=== PATIENT | female | born 1995 | race Hispanic/Latino ===

== ENCOUNTER 2020-01-04 12:50 | Emergency (ER) | payer MEDICAID, OTHER ==
[2020-01-04] MEDS ORDERED: ORPHENADRINE CITRATE 30 MG/ML ML ONE (13:20)
[2020-01-04] MEDS ORDERED: KETOROLAC TROMETHAMINE 30MG/ML ONE (13:21)
[2020-01-04 13:22] LABS: APPEARANCE,URINE Clear (CLEAR); BILIRUBIN,URINE Negative (NEGATIVE); COLOR,URINE Yellow (YELLOW); GLUCOSE, URINE (UA) Negative (NEGATIVE); KETONES,URINE Negative (NEGATIVE); LEUKOCYTE ESTERASE ,URINE Small (NEGATIVE); NITRATE,URINE Negative (NEGATIVE); OCCULT BLOOD,URINE Negative (NEGATIVE); PH,URINE 5.5 (5.0-8.0); PROTEIN,URINE Negative (NEGATIVE); UROBILINOGEN,URINE 0.2 mg/dL (0.2-1.0)
[2020-01-04 13:25] LABS: HCG,QUAL RESULT NEGATIVE (NEGATIVE)
[2020-01-04 13:37] LABS: BACTERIA,URINE Rare /HPF (None Seen); RBC,URINE 0-1 /HPF (0-1); SQUAMOUS EPITHELIAL CELL,UR Rare /HPF (0-2)
== END 2020-01-04 14:26 | disposition home or self-care (01) ==
LOC: EDH 12:50
DX: S39.012A Strain of muscle, fascia and tendon of lower back, initial encounter (principal); X58.XXXA Exposure to other specified factors, initial encounter; Y93.89 Activity, other specified; Y92.218 Other school as the place of occurrence of the external cause; Y99.8 Other external cause status
CPT/HCPCS: 81001; 81025; 96372 ×2; 99284; J1885; J2360

== ENCOUNTER 2023-01-19 15:49 | Emergency (ER) | payer BC, OTHER ==
[~2023-01-19] VITALS: Ht 149.9 cm; Wt 98.9 kg
[2023-01-19] MEDS ORDERED: ACETAMINOPHEN 500 MG TABLET PO ONE (18:00)
[2023-01-19 21:44] VITALS: BP 123/69; PULSE 90; RESP 16; O2SAT 98
[2023-01-19] MEDS ORDERED: NAPR-1180 PO (21:48)
== END 2023-01-19 21:55 | disposition home or self-care (01) ==
LOC: EDH 15:49
DX: M79.604 Pain in right leg (principal); M79.605 Pain in left leg
CPT/HCPCS: 93925; 93970